=== PATIENT | female | born 1975 | race Caucasian/White ===

== ENCOUNTER 2016-08-13 13:04 | Outpatient (CLI) | payer OTHER ==
--- NOTE | 2016-08-14 13:57 | DIAGNOSTIC IMAGING REPORT ---
PROCEDURE: MG BILATERAL SCREENING W/CAD INDICATION: Screening. Baseline. TECHNIQUE: Bilateral CC and MLO digital views. COMPARISON: None. FINDINGS: Computer-aided detection applied. Dense parenchymal pattern. There is an 8 mm ovoid nodular density in the left upper breast (seen only on the MLO view). IMPRESSION: 1. There is an 8 mm nodular density left upper breast (seen only on the MLO view). While this may represent a normal intramammary lymph node, underlying mass or cyst should also be considered. Further mammographic views (true lateral view, CC and MLO spot compression views) are recommended. In addition, left breast ultrasound is recommended. RESULT CODE: 0- Incomplete; needs additional evaluation. A. A negative report should not delay biopsy if a dominant or clinically suspicious mass is present. 10-15% of cancers are not identified by x-ray. B. A negative report may reinforce clinical impression. C. Adenosis and dense breasts may obscure an underlying neoplasm. D. False positive reports average 6-10%. E.. A yearly screening mammogram is recommended. A reminder letter will be scheduled.
== END 2016-08-13 23:00 ==
LOC: MAM SRH 13:04
DX: Z12.31 Encounter for screening mammogram for malignant neoplasm of breast (principal)

== ENCOUNTER 2016-08-27 10:43 | Outpatient (CLI) | payer OTHER ==
--- NOTE | 2016-08-27 14:04 | DIAGNOSTIC IMAGING REPORT ---
PROCEDURE: MG UNILATERAL DIAG-LT W/CAD INDICATION: RE CHECK DENSITY SEEN ON MAMMO TECHNIQUE: True lateral digital view of left breast. In addition, spot compression CC and MLO views were obtained of the left upper outer quadrant . Finally, high-resolution left breast ultrasound was performed (18 mHz). COMPARISON: Mammogram at 08/13/2016 FINDINGS: MAMMOGRAM: Computer-aided detection applied. Previously noted 8 mm nodule in the upper left breast is not confirmed on today's additional views. BREAST ULTRASOUND: High-resolution ultrasound of the upper left breast demonstrates normal breast parenchyma without evidence of a mass or acoustic shadowing. IMPRESSION: 1. Normal left mammogram and left breast ultrasound. Recommend repeat left breast mammogram in 6 months to confirm stability RESULT CODE: 3- Probably benign. A. A negative report should not delay biopsy if a dominant or clinically suspicious mass is present. 10-15% of cancers are not identified by x-ray. B. A negative report may reinforce clinical impression. C. Adenosis and dense breasts may obscure an underlying neoplasm. D. False positive reports average 6-10%. E.. A yearly screening mammogram is recommended. A reminder letter will be scheduled.
== END 2016-08-27 23:00 | disposition home or self-care (01) ==
LOC: MAM SRH 10:43
DX: Z12.31 Encounter for screening mammogram for malignant neoplasm of breast (principal)